=== PATIENT | male | born 1995 | race Caucasian/White ===

== ENCOUNTER 2021-10-11 13:35 | Emergency (ER) | payer SELFPAY ==
[~2021-10-11] VITALS: Ht 170.2 cm; Wt 104.3 kg
[2021-10-11 13:45] VITALS: BP 112/65
[2021-10-11] MEDS ORDERED: PHEN177S23 PO (14:10)
[2021-10-11] MEDS ORDERED: NAPR-54 PO (14:10)
[2021-10-11] MEDS ORDERED: ALBU0.0912 IH (14:10)
[2021-10-11] MEDS ORDERED: PROM118S5 PO (14:10)
[2021-10-11 14:48] VITALS: BP 135/72
--- NOTE | 2021-10-11 14:48 | NUR ---
COLLECTED PCR, WALKED TO LAB.
--- NOTE | 2021-10-11 14:49 | NUR ---
Patient discharged with v/s stable. Written and verbal after care instructions given FOR VIRAL ILLNESS and explained. Patient alert, oriented and verbalized understanding of instructions. Ambulatory with steady gait. All questions addressed prior to discharge. ID band removed. Patient advised to follow up with PMD. Rx of ALBUTEROL, PHENOL, NAPROXEN, AND PROMETHAZINE given. Patient educated on indication of medication including possible reaction and side effects. Opportunity to ask questions provided and answered.
== END 2021-10-11 14:49 | disposition home or self-care (01) ==
LOC: MED 13:35
DX: U07.1 COVID-19 (principal); J45.909 Unspecified asthma, uncomplicated
CPT/HCPCS: 99283; U0003